=== PATIENT | male | born 1965 | race Caucasian/White ===

== ENCOUNTER 2016-07-14 13:19 | Day surgery (SDC) | payer MEDICAID ==
[2016-07-14] MEDS ORDERED: NALOXONE HCL 0.4 MG/ML INJ ONE (13:32)
[2016-07-14] MEDS ORDERED: FLUMAZENIL 0.5 MG/5 ML MDV IVP ONE (13:32)
[2016-07-14] MEDS ORDERED: fentaNYL 100 MCG/2 ML INJ ONE (13:33)
[2016-07-14] MEDS ORDERED: MIDAZOLAM 2 MG/2 ML VIAL ONE (13:33)
[2016-07-14] MEDS ORDERED: NS 1,000 ML IV SCH (13:45)
[2016-07-14] MEDS ORDERED: TRIAMCINOLONE ACETONIDE 200 MG/5 ML MDV IM ONE (15:03)
[2016-07-14] MEDS ORDERED: IOPAMIDOL (ISOVUE-M 300) 15 ML VIAL IV ONE (15:03)
--- NOTE | 2016-07-14 18:01 | IR ---
L5-S1 Epidural Steroid Injection Indication: Recurrent low back pain, now radiates down the back of the buttock, back of the thigh, b ack of the leg, and wraps laterally to the dorsum of the foot. Previous injections at L3-L4 have work ed well, and to a lesser extent at L4-L5. Informed consent: Obtained from the patient. Risks and benefits were discussed. Cross Cutting Measure: Patient's current list of medications including all known prescriptions, over -the-counters, herbals, and vitamin/mineral/dietary supplements are reviewed. Medications' name, dos age, frequency, and route of administration are confirmed. Patient is a non-smoker. Prophylactic Antibiotic: Cefazolin was not ordered and administered for antimicrobial prophylaxis be cause it was not medically necessary. VTE Prophylaxis: There is not an order for VTE prophylaxis to be given within 24 hours of the proced ure end time. VTE prophylaxis was not given because it was not medically necessary. Technique: Patient is placed in prone position. A "timeout" procedure was performed to identify the correct patient and the correct procedure. 1% Xylocaine was used for local anesthetic. All element s of maximal sterile barrier technique including cap, mask, sterile gown, sterile gloves, large steri le sheet, hand hygiene, and 2% chlorhexidine for cutaneous antisepsis, followed. A 22-gauge spinal needle was inserted into L5-S1 epidural space via interlaminar approach. Contrast i njection confirms satisfactory placement of the needle. This is followed by administration of 100 mg Kenalog, 3 mL 1% Xylocaine. Patient states that the injection reproduced presenting pain. Fluoroscopy: 0.4 minutes, 2 images. Impression: L5-S1 epidural steroid injection performed as above.
== END 2016-07-14 16:00 | disposition home or self-care (01) ==
LOC: FIMAGING 13:19
PROVIDERS: ATTEND Radiology Diagnostic Radiology
PROC: 3E0S33Z Introduction of Anti-inflammatory into Epidural Space, Percutaneous Approach (ICD-10-PCS; principal; 2016-07-14 15:11)
PROC: 3E0S3BZ Introduction of Anesthetic Agent into Epidural Space, Percutaneous Approach (ICD-10-PCS; principal; 2016-07-14 15:11)
DX: M54.41 Lumbago with sciatica, right side (principal)
CPT/HCPCS: J2250; J2310; J3010; J3301; Q9967

== ENCOUNTER → 2017-03-14 | Day surgery (SDC) | payer MEDICAID ==
[~2017-03-14] MED LIST: IOPAMIDOL (ISOVUE-M 300) 15 ML VIAL ONE; MIDAZOLAM 2 MG/2 ML VIAL ONE; TRIAMCINOLONE ACETONIDE 200 MG/5 ML MDV IM ONE; fentaNYL 100 MCG/2 ML INJ ONE
== END | disposition home or self-care (01) ==
LOC: FIMAGING 12:26
PROVIDERS: ATTEND Family Medicine
PROC: 3E0R3BZ Introduction of Anesthetic Agent into Spinal Canal, Percutaneous Approach (ICD-10-PCS; principal; 2017-03-14 14:32)
PROC: 3E0R33Z Introduction of Anti-inflammatory into Spinal Canal, Percutaneous Approach (ICD-10-PCS; principal; 2017-03-14 14:32)
DX: M54.16 Radiculopathy, lumbar region (principal)
CPT/HCPCS: J2250; J3010; J3301; Q9967